=== PATIENT | female | born 1965 | race Hispanic/Latino ===

== ENCOUNTER → 2018-09-14 | Outpatient (CLI) | payer BC ==
[~2018-09-14] MED LIST: ALEVE D; BENADRY; BENADRYL; MOME17N NASAL; OMEGA3
== END | disposition home or self-care (01) ==
LOC: RAH 14:45
PROVIDERS: ATTEND Family Medicine
DX: Z12.31 Encounter for screening mammogram for malignant neoplasm of breast (principal)
CPT/HCPCS: 77067

== ENCOUNTER → 2019-09-16 | Outpatient (CLI) | payer BC | END | disposition home or self-care (01) | LOC: RAH 14:04 | DX: Z12.31 Encounter for screening mammogram for malignant neoplasm of breast (principal) | CPT/HCPCS: 77067 ==

== ENCOUNTER → 2020-09-14 | Outpatient (CLI) | payer BC | END | disposition home or self-care (01) | LOC: RAH 09:37 | PROVIDERS: ATTEND Family Medicine | DX: Z12.31 Encounter for screening mammogram for malignant neoplasm of breast (principal) | CPT/HCPCS: 77067 ==

== ENCOUNTER → 2022-08-31 | Outpatient (CLI) | payer BC | END | disposition home or self-care (01) | LOC: RAH 11:38 | PROVIDERS: ATTEND Family Medicine | DX: Z12.31 Encounter for screening mammogram for malignant neoplasm of breast (principal) | CPT/HCPCS: 77067 ==

== ENCOUNTER → 2023-02-10 | Outpatient (CLI) | payer BC | END | disposition home or self-care (01) | LOC: RAH 13:26 | PROVIDERS: ATTEND Family Medicine | DX: E01.1 Iodine-deficiency related multinodular (endemic) goiter (principal) | CPT/HCPCS: 76536 ==

== ENCOUNTER → 2024-09-02 | Outpatient (CLI) | payer BC | END | disposition home or self-care (01) | LOC: RAH 14:27 | PROVIDERS: ATTEND Internal Medicine | DX: Z12.31 Encounter for screening mammogram for malignant neoplasm of breast (principal); R92.323 Mammographic fibroglandular density, bilateral breasts | CPT/HCPCS: 77067 ==

== ENCOUNTER → 2024-11-08 | Outpatient (CLI) | payer BC ==
[~2024-11-08] MED LIST changes: +IOHEXOL 350 MG/ML 100ML INFUS..BTL IV ONE
--- NOTE | 2024-11-08 14:49 | HMCIMG ---
CT UROGRAM (ABD/PEL WWO) REASON: UTI COMPARISON: None TECHNIQUE: Images are obtained from lung bases through the symphysis pubis before and after IV contrast infusion. Multiple post contrast sequences were acquired to 20 minutes. Multiplanar reconstruction images were performed for CT urogram technique. Contrast volume was 100 cc Omnipaque [id number]. FINDINGS: Precontrast images show clear lung bases. There are no focal liver lesions. Spleen, kidneys, pancreas and gallbladder appear normal. There is mild sigmoid diverticulosis without evidence of diverticulitis. The bowel loops are otherwise unremarkable including the appendix. There is no retroperitoneal or pelvic lymphadenopathy. There is no free air or fluid. Anterior abdominal wall appears intact. Bones appear unremarkable. Postcontrast images show prompt bilateral excretion of contrast. Kidneys ureters and urinary bladder appear unremarkable. There is no mass, stone or hydronephrosis. Sequential acquisitions show continued normal pelvicalyceal systems and ureters IMPRESSION: 1. Mild sigmoid diverticulosis without evidence of diverticulitis. 2. Otherwise unremarkable CT abdomen and pelvis with CT urogram technique.
== END | disposition home or self-care (01) ==
LOC: RAH 07:35
PROVIDERS: ATTEND Specialist
DX: K57.30 Diverticulosis of large intestine without perforation or abscess without bleeding (principal); N39.0 Urinary tract infection, site not specified; Z87.440 Personal history of urinary (tract) infections
CPT/HCPCS: 74178; Q9967

== ENCOUNTER → 2025-09-03 | Outpatient (CLI) | payer BC ==
[~2025-09-03] MED LIST changes: -IOHEXOL 350 MG/ML 100ML INFUS..BTL IV ONE
== END | disposition home or self-care (01) ==
LOC: RAH 09:15
PROVIDERS: ATTEND Clinical Nurse Specialist Family Health
DX: Z12.31 Encounter for screening mammogram for malignant neoplasm of breast (principal)
CPT/HCPCS: 77067